=== PATIENT | male | born 1990 | race Hispanic/Latino ===

== ENCOUNTER 2021-10-11 14:25 | Emergency (ER) | payer OTHER ==
[~2021-10-11] VITALS: Ht 167.6 cm; Wt 145.1 kg
[2021-10-11 14:35] VITALS: BP 159/72
[2021-10-11 14:50] LABS: BASOPHILS % (AUTO) 0.9 % (0.0-5.0); EOSINOPHILS % (AUTO) 2.4 % (0.0-8.0); HEMATOCRIT 45.8 % (42-54); LYMPHOCYTES % (AUTO) 29.8 % (21.0-51.0); MEAN CORPUSCULAR HEMOGLOBIN 28.8 pg (27.0-33.0); MEAN CORPUSCULAR HGB CONC 32.8 g/dL (32.0-36.0); MEAN CORPUSCULAR VOLUME 88.1 fL (79-99); MONOCYTES % (AUTO) 6.9 % (3.0-13.0); NEUTROPHILS % (AUTO) 59.5 % (40.0-77.0); PLATELET COUNT (AUTO) 271 K/uL (130-400); RED CELL DISTRIBUTION WIDTH 12.7 % (11.0-15.5)
[2021-10-11 15:36] LABS: POTASSIUM 4.2 mmol/L (3.5-5.1)
[2021-10-11 15:41] LABS: BILIRUBIN,TOTAL 0.3 mg/dL (0.2-1.0); TOTAL PROTEIN, SERUM 7.7 g/dL (6.0-8.3)
== END 2021-10-11 14:49 | disposition home or self-care (01) ==
LOC: EDH 14:25
DX: F43.0 Acute stress reaction (principal); R07.89 Other chest pain
CPT/HCPCS: 36415; 80053; 84484; 85025; 93005